=== PATIENT | female | born 1970 ===

== ENCOUNTER 2017-10-21 17:04 | Emergency (ER) | payer BC ==
--- NOTE | 2017-10-21 17:24 | EDPHY ---
H & P Time Seen by Provider: 10/21/17 17:23 HPI/ROS: Chief complaint. Vomiting and diarrhea HPI. Patient is a 47-year-old female visiting from [place] with vomiting and diarrhea that began about noon. Patient arrived yesterday from [place]. She thinks that she use some coffee Creamer in her coffee this morning at about 8:30 a.m.. At noon she developed diarrhea and then at 2:00 p.m. She developed vomiting. She tells me she really does not have any abdominal pain. She however cannot keep fluids down. She has had previous food poisoning and this feels similar to her. She was feeling well prior to this starting. She has been to altitude many times and has not had issues with altitude and does not feel that this is related to altitude illness. ROS Constitutional. no fever/chills, no weakness Eyes. no problems with vision ENT. no sore throat, no nasal drainage Cardiovascular. no chest pain Respiratory. no shortness of breath, no cough Abdominal. No abdominal pain. Vomiting and diarrhea . no problems urinating MS. no calf pain/swelling, no neck/back pain, no joint pain Skin. no rash Lymph. no swollen glands Neuro. no headache, no dizziness, no difficulty walking or with speech Past Medical/Surgical History: Past medical history hysterectomy, breast cancer Social History: Nonsmoker, no alcohol Physical Exam: General Appearance: Alert pleasant well-developed female mild distress vital signs are stable Eyes: Pupils equal and round no pallor or injection. ENT, mucous membranes are dry Respiratory: There are no retractions, lungs are clear to auscultation. Cardiovascular: Regular rate and rhythm. Gastrointestinal: Abdomen is soft and nontender, no masses, bowel sounds normal. Neurological: Awake and alert, sensory and motor exams grossly normal. Skin: Warm and dry, no rashes. Musculoskeletal: Neck is supple nontender. Extremities symmetrical, full range of motion. Psychiatric: Patient is oriented X 3, there is no agitation. Constitutional: Initial Vital Signs Temperature (C) 36.6 C 10/21/17 17:25 Heart Rate 86 10/21/17 17:25 Respiratory Rate 18 10/21/17 17:25 Blood Pressure 112/54 L 10/21/17 17:25 O2 Sat (%) 99 10/21/17 17:25 O2 Delivery Mode Room Air Allergies/Adverse Reactions: No Known Allergies Allergy (Unverified 10/21/17 17:25) Home Medications: Medication Instructions Recorded NK [No Known Home Meds] 10/21/17 Medical Decision Making Procedures: IV normal saline with target of 2 L. Zofran for nausea ED Course/Re-evaluation: Re-evaluation patient has had 2 L of fluid. She is feeling much better. She has no nausea or abdominal pain. She is taking oral fluids. She has been up to the bathroom to urinate. Patient and I discussed laboratory evaluation, treatment plan including criteria for return importance of follow-up further evaluation. She expresses understanding and agreement Differential Diagnosis: This may certainly be food poisoning. I also considered diverticulitis, urinary tract infection, appendicitis - Data Points Laboratory Results: Laboratory Results 10/21/17 17:55 10/21/17 10/21/17 19:20 17:55 Sodium 140 mEq/L mEq/L (135-145) Potassium 4.8 mEq/L mEq/L (3.5-5.2) Chloride 107 mEq/L mEq/L (97-110) Carbon Dioxide 26 mEq/l mEq/l (22-31) Anion Gap 7 mEq/L L mEq/L (8-16) BUN 22 mg/dL mg/dL (7-23) Creatinine 0.8 mg/dL mg/dL (0.6-1.0) Estimated GFR > 60 Glucose 158 mg/dL H mg/dL (70-100) Calcium 9.7 mg/dL mg/dL (8.5-10.4) Urine Color YELLOW Urine Appearance HAZY Urine pH 6.0 (5.0-7.5) Ur Specific [place] 1.025 (1.002-1.030) Urine Protein NEGATIVE (NEGATIVE) Urine Ketones NEGATIVE (NEGATIVE) Urine Blood NEGATIVE (NEGATIVE) Urine Nitrate NEGATIVE (NEGATIVE) Urine Bilirubin NEGATIVE (NEGATIVE) Urine Urobilinogen 0.2 EU EU (0.2-1.0) Ur Leukocyte Esterase NEGATIVE (NEGATIVE) Urine Glucose NEGATIVE (NEGATIVE) Medications Given: Discontinued Medications Sodium Chloride (Ns) 1,000 mls @ 0 mls/hr IV EDNOW ONE; Wide Open PRN Reason: Protocol Stop: 10/21/17 17:54 Last Admin: 10/21/17 17:15 Dose: 1,000 mls Sodium Chloride (Ns) 1,000 mls @ 0 mls/hr IV EDNOW ONE; Wide Open PRN Reason: Protocol Stop: 10/21/17 17:55 Last Admin: 10/21/17 18:23 Dose: 1,000 mls Ondansetron HCl (Zofran) 4 mg IVP EDNOW ONE Stop: 10/21/17 17:54 Last Admin: 10/21/17 17:59 Dose: 4 mg Departure - Departure Disposition: Home, Routine, Self-Care Clinical Impression: Gastroenteritis Condition: Good Instructions: Gastroenteritis (ED) Additional Instructions: Frequent, small sips fluids. Gradual diet advancement. Zofran 1 pill every 4 hr as needed for nausea and vomiting. May buy Imodium from the grocery store to help with diarrhea. Return for worsening symptoms. Recheck in 1-2 days if not improving Referrals: NONE *PRIMARY CARE P,. [Primary Care Provider] - As per Instructions
[2017-10-21 17:28] VITALS: TEMP 98
[2017-10-21] MEDS ORDERED: NS 1,000 ML IV ONE ×2 (17:53→17:54)
[2017-10-21] MEDS ORDERED: ONDANSETRON 4 MG/2 ML VIAL IVP ONE (17:53)
[2017-10-21 18:42] VITALS: O2SAT 96
[2017-10-21] MEDS ORDERED: ONDANSETRON 4MG PREPACK#2 BTL TAKEHOME ONE (19:49)
[2017-10-21 20:02] VITALS: BP 99/63; PULSE 84; RESP 16
== END 2017-10-21 20:00 | disposition home or self-care (01) ==
LOC: CED 17:04
DX: K52.9 Noninfective gastroenteritis and colitis, unspecified (principal); E86.9 Volume depletion, unspecified; Z85.3 Personal history of malignant neoplasm of breast
CPT/HCPCS: 80048-PO; 81003-PO; 96374